=== PATIENT | female | born 1985 | race Caucasian/White ===

== ENCOUNTER 2018-04-20 14:46 | Emergency (ER) | payer OTHER ==
[~2018-04-20] VITALS: Ht 167.6 cm; Wt 59.0 kg
[~2018-04-20 14:46] MED LIST: DIAZ2TAB3 PO; GABA300C PO; HYDR-3240 PO
[2018-04-20] MEDS ORDERED: ONDANSETRON ODT 4 MG ONE (15:07)
[2018-04-20] MEDS ORDERED: HYDROmorphone 2 MG/ML, 1ML ONE (15:08)
[2018-04-20] MEDS ORDERED: HYDROmorphone 1 MG/ML, 1ML IM ONE (15:30)
[2018-04-20] MEDS ORDERED: ONDANSETRON ODT 4 MG PO ONE (15:30)
[2018-04-20 15:35] LABS: MEAN CORPUSCULAR HEMOGLOBIN 28.6 pg (27.0-34.8); MEAN CORPUSCULAR VOLUME 84.1 fL (80-100); PLATELET COUNT 413 x10^3/uL (130-400); RED BLOOD COUNT 6.35 x10^6/uL (3.82-5.3); RED CELL DISTRIBUTION WIDTH 14.2 % (9.6-15.2)
[2018-04-20 15:36] LABS: BASOPHILS # (AUTO) 0.22 x10^3/uL (0-0.1); BASOPHILS % (AUTO) 1 % (0-1); EOSINOPHILS # (AUTO) 0.09 x10^3/uL (0-0.4); EOSINOPHILS % (AUTO) 0 % (1-7); LYMPHOCYTES # (AUTO) 4.22 x10^3/uL (1-3.4); LYMPHOCYTES % (AUTO) 24 % (22-44); MD NO; MONOCYTES % (AUTO) 6 % (2-9); NEUTROPHILS # (AUTO) 12.36 x10^3/uL (1.8-6.8); NEUTROPHILS % (AUTO) 69 % (42-75)
[2018-04-20 15:47] LABS: ALBUMIN 4.1 g/dL (3.4-5.0); ANION GAP 10 mmol/L (5-15); CALCIUM 9.1 mg/dL (8.5-10.1); CHLORIDE 106 mmol/L (98-107)
[2018-04-20] MEDS ORDERED: CEFTRIAXONE PMX 1GM/50ML 50 ML IV ONE (16:30)
[2018-04-20] MEDS ORDERED: LIDOCAINE-MPF 1%, 5ML ONE (16:41)
[2018-04-20] MEDS ORDERED: CEFTRIAXONE 1,000 MG ONE (16:41)
[2018-04-20 16:48] LABS: MICROSCOPIC INDICATED
[2018-04-20 16:49] LABS: CULTURE INDICATED? YES
[2018-04-20] MEDS ORDERED: CEFTRIAXONE 1,000 MG IM ONE (17:00)
[2018-04-20 17:02] VITALS: BP 120/96
== END 2018-04-20 17:06 | disposition home or self-care (01) ==
LOC: ED 15:19
DX: O20.0 Threatened abortion (principal); R10.32 Left lower quadrant pain; R19.7 Diarrhea, unspecified; Z3A.01 Less than 8 weeks gestation of pregnancy
CPT/HCPCS: 36415; 76801; 80048; 81001; 82040; 84702; 85025; 86850; 86900; 87086; 96372; 99284; J0696; J1170; Q0162

== ENCOUNTER 2018-09-28 04:13 | Inpatient (IN) | payer MEDICAID, OTHER ==
[~2018-09-28] VITALS: Ht 162.6 cm; Wt 74.3 kg
--- NOTE | 2018-09-28 04:43 | NUR ---
Pt presents to ed 31 weeks w/ sudden onset fever and chills this am. Admits to meth use approximately 8 hours prior. L&d nurses notified when pt en route and heart tones observed upon admit to ed. Monitoring applied. Pt mildly tachycardic. Pa aware. Pa at bedside for assessment.
[2018-09-28] MEDS ORDERED: ACETAMINOPHEN 500 MG TABLET ONE (04:45)
[2018-09-28] MEDS ORDERED: SODIUM CHLORIDE 0.9% 1,000ML IVBOLUS ONE ×3 (05:00→09:00)
[2018-09-28] MEDS ORDERED: ACETAMINOPHEN 500 MG TABLET PO ONE (05:00)
--- NOTE | 2018-09-28 05:03 | NUR ---
Aware of need for ua. States unable to at this time.
[2018-09-28 05:22] LABS: MEAN CORPUSCULAR HGB CONC 34.6 g/dL (32.4-35.8); MEAN CORPUSCULAR VOLUME 89.5 fL (80-100); MEAN PLATELET VOLUME 6.7 fL (7.4-10.4); PLATELET COUNT 247 x10^3/uL (130-400); RED BLOOD COUNT 3.62 x10^6/uL (3.82-5.3)
[2018-09-28 05:29] LABS: ALBUMIN 2.1 g/dL (3.4-5.0); ANION GAP 8 mmol/L (5-15); CHLORIDE 110 mmol/L (98-107); CREATININE 0.45 mg/dL (0.55-1.02)
--- NOTE | 2018-09-28 05:44 | NUR ---
Sleep comfortably on gurney. Rr even and unlabored. Nadn. States still unable to provide ua.
[2018-09-28 05:55] LABS: MD YES
[2018-09-28 05:56] LABS: <PLATELET ESTIMATE> ADEQUATE; <PLT MORPHOLOGY> NORMAL PLT MORPH; <RBC MORPHOLOGY> NORMAL; BAND#(MANUAL) 1.27 x10^3/uL; BANDS%(MANUAL) 9 % (0-7); LYMPH#(MANUAL) 0.71 x10^3/uL (1-3.4); LYMPHS% (MANUAL) 5 % (22-44); MONOS#(MANUAL) 0.14 x10^3/uL (0.3-2.7); MONOS% (MANUAL) 1 % (2-9); SEG#(MANUAL) 11.99 x10^3/uL (1.8-6.8); SEGS% (MANUAL) 85 % (42-75)
--- NOTE | 2018-09-28 06:34 | NUR ---
This rn talked to pa and pa agrees 2nd L bolus to be given. 2nd L hung at this time.
[2018-09-28] MEDS ORDERED: POTASSIUM CHLORIDE 10% 40 MEQ/30 ML UDC ONE (06:39)
[2018-09-28 06:44] LABS: RAPID INFLUENZA A Negative (Negative); RAPID INFLUENZA B Negative (Negative)
--- NOTE | 2018-09-28 06:53 | NUR ---
Recieved bedside report from ELGIN Granados. All questions answered. Assuming care of pt. Pt resting on gurney with PIV fluids infusing per EMAR. Pt remains connected to child monitor, NIBP, and continous pulse ox. NADN. Both bedrails up for safety measures. No needs expressed at this time. Call light within reach.
[2018-09-28] MEDS ORDERED: POTASSIUM CHLORIDE 10% 40 MEQ/30 ML UDC PO ONE (07:00)
--- NOTE | 2018-09-28 07:49 | NUR ---
Assisted pt on to bed jimenes. Collected urine and sent for UA to lab. Pt moanig stating, "it hurts all over. I think I am in withdrawals." ED PA aware. Both bedrails up for safety measures. Call light within reach. No needs expressed at this time. ELLEN.
[2018-09-28 08:20] LABS: MICROSCOPIC INDICATED
[2018-09-28] MEDS ORDERED: CEFTRIAXONE PMX 1GM/50ML 50 ML IVPB ONE (08:30)
[2018-09-28] MEDS ORDERED: CEFTRIAXONE PMX 1GM/50ML 50 ML ONE (08:36)
[2018-09-28 08:49] LABS: CULTURE INDICATED? YES
--- NOTE | 2018-09-28 08:54 | NUR ---
Provided PIV fluids and medications per EMAR. Pt resting with eyes closed on gurney on right lateral side in position. Both bed rails up for safety measures. Call light within reach. NADN. ED MD and ED PA aware of pt vital signs. PIV fluids infusing per EMAR and orders. No needs expressed at this time. Pt has unlabored respirations with even chest rise and fall.
[2018-09-28 09:21] LABS: AMPHETAMINE SCREEN, URINE Positive (Negative); BARBITURATE SCREEN, URINE Negative (Negative); BENZODIAZEPINE SCREEN, URINE Negative (Negative); CANNABINOID SCREEN, URINE Negative (Negative); COCAINE SCREEN, URINE Negative (Negative); METHADONE SCREEN, URINE Negative (Negative); OPIATE SCREEN, URINE Positive (Negative)
[2018-09-28] MEDS ORDERED: SODIUM CHLORIDE FLUSH 10ML SYR IVF PRN (09:30)
[2018-09-28] MEDS ORDERED: SODIUM CHLORIDE 0.9% 1,000 ML IV SCH (09:43)
[2018-09-28] MEDS ORDERED: LABETALOL 5 MG/ML SYRINGE IV PRN (10:00)
[2018-09-28] MEDS ORDERED: ONDANSETRON 2MG/ML, 2ML IVPush PRN (10:00)
[2018-09-28] MEDS ORDERED: CEFTRIAXONE PMX 2GM/50ML 50 ML IV SCH (10:00)
[2018-09-28] MEDS ORDERED: ONDANSETRON ODT 4 MG PO PRN (10:00)
[2018-09-28 10:15] LABS: FREE T4 (FREE THYROXINE) 1.19 ng/dL (0.76-1.46)
--- NOTE | 2018-09-28 10:18 | NUR ---
Provided report to ELGIN Miller. All questios answered. Pt ready to transfer to floor from ED when ELGIN Miller calls back to report to ED that room on floor is ready.
--- NOTE | 2018-09-28 10:34 | NUR ---
Pt expressing to ED RN, "Can I just leave? Can I take antibiotics at home. They are not going to treat me for withdrawal." Called Admitting MD. Admitting MD aware. Admitting MD to call back with medicaiton orders after consultation with pharmacy.
--- NOTE | 2018-09-28 10:36 | NUR ---
Breakfast tray provided for pt. Pt appreciative.
--- NOTE | 2018-09-28 11:09 | NUR ---
Admitting doctor called and notified ED RN that pharmacy consulted, no medications for withdrawal available for pt at this time related to .
--- NOTE | 2018-09-28 11:39 | NUR ---
Pt transfered to floor from ED and left with all personal belongings.
[2018-09-28 11:42] VITALS: BP 98/61
[2018-09-28 11:47] VITALS: BP 98/61
[2018-09-28] MEDS ORDERED: POTASSIUM CHLORIDE 20 MEQ TAB.ER.PRT PO ONE ×3 (12:00→14:00)
[2018-09-28] MEDS ORDERED: MAGNESIUM SULFATE 2 GM in SODIUM CHLORIDE 0.9% 50 ML IV ONE (12:30)
[2018-09-28] MEDS: POTASSIUM CHLORIDE 40 MEQ in SODIUM CHLORIDE 0.9% 500 ML IV ONE ×2 (12:57→22:42)
[2018-09-28] MEDS ORDERED: POTASSIUM PHOSPHATE 44 MEQ in SODIUM CHLORIDE 0.9% 500 ML IV ONE (13:00)
[2018-09-28] MEDS ORDERED: OXYcodone 5 MG/5 ML ORAL.SOL UDC PO PRN ×2 (13:00→23:00)
[2018-09-28] MEDS ORDERED: LORazepam INTENSOL 2 MG/ML PO PRN ×2 (13:00→23:00)
[2018-09-28 15:45] VITALS: BP 96/63
[2018-09-28 18:42] VITALS: BP 95/59
[2018-09-29 00:48] VITALS: BP 102/60
[2018-09-29] MEDS: NS + 20MEQ KCL 1,000 ML IV SCH ×2 (04:48→10:54)
[2018-09-29 05:55] LABS: BASOPHILS # (AUTO) 0.01 x10^3/uL (0-0.1); BASOPHILS % (AUTO) 0 % (0-1); EOSINOPHILS # (AUTO) 0.01 x10^3/uL (0-0.4); EOSINOPHILS % (AUTO) 0 % (1-7); LYMPHOCYTES # (AUTO) 0.91 x10^3/uL (1-3.4); LYMPHOCYTES % (AUTO) 8 % (22-44); MD NO; MEAN CORPUSCULAR HEMOGLOBIN 30.8 pg (27.0-34.8); MEAN CORPUSCULAR HGB CONC 33.8 g/dL (32.4-35.8); MONOCYTES % (AUTO) 4 % (2-9); NEUTROPHILS # (AUTO) 10.39 x10^3/uL (1.8-6.8); NEUTROPHILS % (AUTO) 88 % (42-75); PLATELET COUNT 238 x10^3/uL (130-400); RED BLOOD COUNT 3.44 x10^6/uL (3.82-5.3); RED CELL DISTRIBUTION WIDTH 13.5 % (9.6-15.2)
[2018-09-29 06:03] LABS: CHLORIDE 117 mmol/L (98-107)
[2018-09-29 06:39] LABS: ALANINE AMINOTRANSFERASE 39 U/L (12-78); ALBUMIN 1.8 g/dL (3.4-5.0); ALKALINE PHOSPHATASE 95 U/L (45-117); ANION GAP 7 mmol/L (5-15); BILIRUBIN,TOTAL 1.1 mg/dL (0.2-1.0); CALCIUM 7.5 mg/dL (8.5-10.1); CREATININE 0.39 mg/dL (0.55-1.02); THYROID STIMULATING HORMONE 0.063 mIU/L (0.358-3.740); TOTAL PROTEIN 4.8 g/dL (6.4-8.2)
[2018-09-29 08:35] VITALS: BP 96/60
[2018-09-29] MEDS: BUPRENORPHINE/NALOXONE 2-0.5MG SL SCH (08:38)
[2018-09-29] MEDS ORDERED: CEFTRIAXONE PMX 2GM/50ML 50 ML IV SCH (09:00)
[2018-09-29] MEDS ORDERED: DAPTOMYCIN 425 MG in SODIUM CHLORIDE 0.9% 100 ML IVPB SCH (10:00)
[2018-09-29] MEDS: SODIUM CHLORIDE 0.45% 1,000 ML IV SCH ×2 (12:41→20:10)
[2018-09-29 13:52] VITALS: BP 101/64
[2018-09-29] MEDS: CEFTAROLINE 600 MG in SODIUM CHLORIDE 0.9% 100 ML IV SCH (20:09)
[2018-09-29 20:17] VITALS: BP 97/64
[2018-09-30 00:30] VITALS: BP 105/65
[2018-09-30] MEDS: BUPRENORPHINE/NALOXONE 2-0.5MG SL SCH ×2 (08:39→20:35)
[2018-09-30] MEDS: NEUTRA PHOS K 250 MG TABLET PO SCH ×3 (08:39→20:35)
[2018-09-30 08:55] VITALS: BP 101/63
[2018-09-30 09:58] LABS: HCT (SEDRATE) 35.5 % (34.6-47.8)
[2018-09-30] MEDS: CEFTAROLINE 600 MG in SODIUM CHLORIDE 0.9% 100 ML IV SCH (11:42)
[2018-09-30 13:50] VITALS: BP 98/63
[2018-09-30 18:45] VITALS: BP 96/60
[2018-09-30] MEDS: SODIUM CHLORIDE 0.45% 1,000 ML IV SCH (20:37)
[2018-10-01] MEDS: CEFTAROLINE 600 MG in SODIUM CHLORIDE 0.9% 100 ML IV SCH ×2 (00:22→12:39)
[2018-10-01] MEDS: BUPRENORPHINE/NALOXONE 2-0.5MG SL SCH ×2 (09:40→20:39)
[2018-10-01 09:41] VITALS: BP 104/57
[2018-10-01 10:05] LABS: BASOPHILS # (AUTO) 0.03 x10^3/uL (0-0.1); BASOPHILS % (AUTO) 0 % (0-1); EOSINOPHILS % (AUTO) 1 % (1-7); LYMPHOCYTES # (AUTO) 2.36 x10^3/uL (1-3.4); LYMPHOCYTES % (AUTO) 26 % (22-44); MD NO; MEAN CORPUSCULAR HGB CONC 34.5 g/dL (32.4-35.8); MEAN CORPUSCULAR VOLUME 89.9 fL (80-100); MEAN PLATELET VOLUME 7.1 fL (7.4-10.4); MONOCYTES # (AUTO) 0.62 x10^3/uL (0.2-0.8); MONOCYTES % (AUTO) 7 % (2-9); NEUTROPHILS # (AUTO) 5.88 x10^3/uL (1.8-6.8); NEUTROPHILS % (AUTO) 65 % (42-75); PLATELET COUNT 247 x10^3/uL (130-400); RED BLOOD COUNT 3.62 x10^6/uL (3.82-5.3); RED CELL DISTRIBUTION WIDTH 13.6 % (9.6-15.2)
[2018-10-01 10:15] LABS: ALANINE AMINOTRANSFERASE 28 U/L (12-78); ALBUMIN 1.8 g/dL (3.4-5.0); ANION GAP 6 mmol/L (5-15); CALCIUM 6.7 mg/dL (8.5-10.1); CHLORIDE 112 mmol/L (98-107); CREATININE 0.45 mg/dL (0.55-1.02)
[2018-10-01 10:18] LABS: ALKALINE PHOSPHATASE 102 U/L (45-117); BILIRUBIN,TOTAL 0.6 mg/dL (0.2-1.0); TOTAL PROTEIN 4.7 g/dL (6.4-8.2)
[2018-10-01] MEDS: SODIUM CHLORIDE 0.45% 1,000 ML IV SCH (12:42)
[2018-10-01 12:44] VITALS: BP 93/53
[2018-10-01 18:56] VITALS: BP 100/60
[2018-10-02] MEDS: CEFTAROLINE 600 MG in SODIUM CHLORIDE 0.9% 100 ML IV SCH ×2 (00:09→12:44)
[2018-10-02 00:12] VITALS: BP 112/77
[2018-10-02] MEDS: SODIUM CHLORIDE 0.45% 1,000 ML IV SCH (04:06)
[2018-10-02 07:45] VITALS: BP 100/64
[2018-10-02] MEDS: BUPRENORPHINE/NALOXONE 2-0.5MG SL SCH ×2 (08:26→21:00)
[2018-10-02 09:55] LABS: MEAN CORPUSCULAR HEMOGLOBIN 30.9 pg (27.0-34.8); MEAN CORPUSCULAR HGB CONC 33.4 g/dL (32.4-35.8); MEAN CORPUSCULAR VOLUME 92.3 fL (80-100); MEAN PLATELET VOLUME 7.3 fL (7.4-10.4); PLATELET COUNT 281 x10^3/uL (130-400); RED BLOOD COUNT 3.65 x10^6/uL (3.82-5.3); RED CELL DISTRIBUTION WIDTH 13.6 % (9.6-15.2)
[2018-10-02 10:08] LABS: ALBUMIN 1.8 g/dL (3.4-5.0); ANION GAP 7 mmol/L (5-15); CALCIUM 7.2 mg/dL (8.5-10.1); CHLORIDE 111 mmol/L (98-107)
[2018-10-02 10:11] LABS: ALANINE AMINOTRANSFERASE 27 U/L (12-78); ALKALINE PHOSPHATASE 98 U/L (45-117); BILIRUBIN,TOTAL 0.5 mg/dL (0.2-1.0); CREATININE 0.34 mg/dL (0.55-1.02); TOTAL PROTEIN 4.9 g/dL (6.4-8.2)
[2018-10-02 10:26] LABS: MD YES
[2018-10-02 10:31] LABS: <PLATELET ESTIMATE> ADEQUATE; <PLT MORPHOLOGY> NORMAL PLT MORPH; <RBC MORPHOLOGY> NORMAL; BANDS%(MANUAL) 1 % (0-7); EOS% (MANUAL) 2 % (1-7); LYMPHS% (MANUAL) 26 % (22-44); METAMYELOCYTES% (MANUAL) 1 % (0-1); MONOS% (MANUAL) 7 % (2-9); SEGS% (MANUAL) 63 % (42-75)
[2018-10-02 13:00] VITALS: BP 100/65
[2018-10-02 20:20] VITALS: BP 102/61
[2018-10-03] MEDS: CEFTAROLINE 600 MG in SODIUM CHLORIDE 0.9% 100 ML IV SCH ×2 (01:14→11:36)
[2018-10-03 01:15] VITALS: BP 101/57
[2018-10-03 05:46] LABS: BASOPHILS # (AUTO) 0.06 x10^3/uL (0-0.1); BASOPHILS % (AUTO) 1 % (0-1); EOSINOPHILS # (AUTO) 0.17 x10^3/uL (0-0.4); EOSINOPHILS % (AUTO) 1 % (1-7); LYMPHOCYTES # (AUTO) 3.41 x10^3/uL (1-3.4); LYMPHOCYTES % (AUTO) 29 % (22-44); MD NO; MEAN CORPUSCULAR HEMOGLOBIN 30.8 pg (27.0-34.8); MEAN CORPUSCULAR HGB CONC 33.4 g/dL (32.4-35.8); MEAN CORPUSCULAR VOLUME 92.3 fL (80-100); MONOCYTES # (AUTO) 0.83 x10^3/uL (0.2-0.8); MONOCYTES % (AUTO) 7 % (2-9); NEUTROPHILS # (AUTO) 7.17 x10^3/uL (1.8-6.8); NEUTROPHILS % (AUTO) 62 % (42-75); PLATELET COUNT 269 x10^3/uL (130-400); RED BLOOD COUNT 3.66 x10^6/uL (3.82-5.3); RED CELL DISTRIBUTION WIDTH 13.5 % (9.6-15.2)
[2018-10-03 05:57] LABS: ALBUMIN 1.9 g/dL (3.4-5.0); ANION GAP 7 mmol/L (5-15); CALCIUM 7.5 mg/dL (8.5-10.1); CHLORIDE 112 mmol/L (98-107)
[2018-10-03 06:01] LABS: ALANINE AMINOTRANSFERASE 23 U/L (12-78); ALKALINE PHOSPHATASE 99 U/L (45-117); BILIRUBIN,TOTAL 0.6 mg/dL (0.2-1.0); CREATININE 0.43 mg/dL (0.55-1.02)
[2018-10-03 08:47] VITALS: BP 95/53
[2018-10-03] MEDS: BUPRENORPHINE/NALOXONE 2-0.5MG SL SCH ×2 (09:01→20:39)
[2018-10-03] MEDS ORDERED: FLUCONAZOLE 50 MG TABLET PO ONE (11:00)
[2018-10-03 12:14] VITALS: BP 93/55
[2018-10-03 19:27] VITALS: BP 93/52
[2018-10-04] VITALS (7 sets, daily range): BP systolic 83–105; BP diastolic 40–65
[2018-10-04] MEDS: CEFTAROLINE 600 MG in SODIUM CHLORIDE 0.9% 100 ML IV SCH (00:44)
[2018-10-04 04:45] LABS: HCT (SEDRATE) 35.1 % (34.6-47.8)
[2018-10-04 04:46] LABS: BASOPHILS # (AUTO) 0.04 x10^3/uL (0-0.1); BASOPHILS % (AUTO) 0 % (0-1); EOSINOPHILS # (AUTO) 0.27 x10^3/uL (0-0.4); EOSINOPHILS % (AUTO) 2 % (1-7); LYMPHOCYTES # (AUTO) 3.24 x10^3/uL (1-3.4); LYMPHOCYTES % (AUTO) 25 % (22-44); MD NO; MEAN CORPUSCULAR HEMOGLOBIN 29.7 pg (27.0-34.8); MEAN CORPUSCULAR HGB CONC 31.7 g/dL (32.4-35.8); MEAN CORPUSCULAR VOLUME 93.7 fL (80-100); MEAN PLATELET VOLUME 7.1 fL (7.4-10.4); MONOCYTES # (AUTO) 0.89 x10^3/uL (0.2-0.8); MONOCYTES % (AUTO) 7 % (2-9); NEUTROPHILS # (AUTO) 8.45 x10^3/uL (1.8-6.8); NEUTROPHILS % (AUTO) 66 % (42-75); PLATELET COUNT 294 x10^3/uL (130-400); RED BLOOD COUNT 3.79 x10^6/uL (3.82-5.3); RED CELL DISTRIBUTION WIDTH 13.2 % (9.6-15.2)
[2018-10-04 04:57] LABS: ALBUMIN 1.9 g/dL (3.4-5.0); ANION GAP 8 mmol/L (5-15); CALCIUM 7.9 mg/dL (8.5-10.1); CHLORIDE 108 mmol/L (98-107)
[2018-10-04 05:00] LABS: ALANINE AMINOTRANSFERASE 24 U/L (12-78); ALKALINE PHOSPHATASE 94 U/L (45-117); BILIRUBIN,TOTAL 0.6 mg/dL (0.2-1.0); C-REACTIVE PROTEIN, QUANT 0.19 mg/dL (0.02-0.49); CREATININE 0.35 mg/dL (0.55-1.02); TOTAL PROTEIN 5.2 g/dL (6.4-8.2)
[2018-10-04] MEDS ORDERED: SODIUM CHLORIDE 0.9%, 500ML IVBOLUS ONE (05:00)
[2018-10-04 05:37] LABS: AMPHETAMINE SCREEN, URINE Negative (Negative); BARBITURATE SCREEN, URINE Negative (Negative); BENZODIAZEPINE SCREEN, URINE Negative (Negative); CANNABINOID SCREEN, URINE Negative (Negative); COCAINE SCREEN, URINE Negative (Negative); METHADONE SCREEN, URINE Negative (Negative); OPIATE SCREEN, URINE Negative (Negative)
[2018-10-04] MEDS: BUPRENORPHINE/NALOXONE 2-0.5MG SL SCH ×2 (09:24→20:52)
[2018-10-04] MEDS: DAPTOMYCIN 425 MG in SODIUM CHLORIDE 0.9% 100 ML IVPB SCH (12:02)
[2018-10-05 02:04] VITALS: BP 85/44
[2018-10-05 02:18] VITALS: BP 106/54
[2018-10-05 05:09] LABS: ANION GAP 8 mmol/L (5-15); CALCIUM 7.9 mg/dL (8.5-10.1); CHLORIDE 106 mmol/L (98-107)
[2018-10-05 05:14] LABS: ALANINE AMINOTRANSFERASE 22 U/L (12-78); ALKALINE PHOSPHATASE 98 U/L (45-117); BILIRUBIN,TOTAL 0.5 mg/dL (0.2-1.0); CREATININE 0.48 mg/dL (0.55-1.02); TOTAL PROTEIN 5.6 g/dL (6.4-8.2)
[2018-10-05 08:38] VITALS: BP 98/59
[2018-10-05] MEDS: BUPRENORPHINE/NALOXONE 2-0.5MG SL SCH ×2 (09:00→20:45)
[2018-10-05] MEDS: DAPTOMYCIN 425 MG in SODIUM CHLORIDE 0.9% 100 ML IVPB SCH (12:15)
[2018-10-05 16:48] VITALS: BP 98/58
[2018-10-05 21:09] VITALS: BP 110/64
[2018-10-06 01:29] VITALS: BP 100/60
[2018-10-06 07:15] VITALS: BP 99/60
[2018-10-06] MEDS: BUPRENORPHINE/NALOXONE 2-0.5MG SL SCH ×2 (09:09→20:20)
[2018-10-06] MEDS: DAPTOMYCIN 425 MG in SODIUM CHLORIDE 0.9% 100 ML IVPB SCH (12:26)
[2018-10-06 14:00] VITALS: BP 97/56
[2018-10-06 20:19] VITALS: BP 102/59
[2018-10-07 02:42] VITALS: BP 91/47
[2018-10-07 08:22] VITALS: BP 90/51
[2018-10-07] MEDS: BUPRENORPHINE/NALOXONE 2-0.5MG SL SCH ×2 (09:00→20:20)
[2018-10-07] MEDS: DAPTOMYCIN 425 MG in SODIUM CHLORIDE 0.9% 100 ML IVPB SCH (13:15)
[2018-10-07] MEDS: MICONAZOLE 7 VAG. CRM 2%, 45GM VG SCH ×2 (14:30→20:19)
[2018-10-07 15:22] VITALS: BP 97/56
[2018-10-07 21:03] VITALS: BP 120/78
[2018-10-08 03:53] VITALS: BP 90/50
[2018-10-08 08:00] VITALS: BP 92/50
[2018-10-08] MEDS: BUPRENORPHINE/NALOXONE 2-0.5MG SL SCH ×2 (08:55→20:28)
[2018-10-08] MEDS: DAPTOMYCIN 425 MG in SODIUM CHLORIDE 0.9% 100 ML IVPB SCH (12:36)
[2018-10-08] MEDS: ENOXAPARIN 40 MG/0.4 ML SQ SCH (12:36)
[2018-10-08 13:31] VITALS: BP 111/65
[2018-10-08 19:24] VITALS: BP 123/67
[2018-10-08] MEDS: MICONAZOLE 7 VAG. CRM 2%, 45GM VG SCH (20:28)
[2018-10-09 03:45] VITALS: BP 92/51
[2018-10-09 04:05] VITALS: BP 92/51
[2018-10-09 05:13] LABS: BASOPHILS # (AUTO) 0.23 x10^3/uL (0-0.1); BASOPHILS % (AUTO) 2 % (0-1); EOSINOPHILS # (AUTO) 0.23 x10^3/uL (0-0.4); EOSINOPHILS % (AUTO) 2 % (1-7); LYMPHOCYTES # (AUTO) 2.94 x10^3/uL (1-3.4); LYMPHOCYTES % (AUTO) 19 % (22-44); MD NO; MEAN CORPUSCULAR HEMOGLOBIN 30.7 pg (27.0-34.8); MEAN CORPUSCULAR HGB CONC 33.4 g/dL (32.4-35.8); MEAN CORPUSCULAR VOLUME 92.1 fL (80-100); MEAN PLATELET VOLUME 7.3 fL (7.4-10.4); MONOCYTES # (AUTO) 1.15 x10^3/uL (0.2-0.8); MONOCYTES % (AUTO) 8 % (2-9); NEUTROPHILS # (AUTO) 10.58 x10^3/uL (1.8-6.8); NEUTROPHILS % (AUTO) 70 % (42-75); PLATELET COUNT 310 x10^3/uL (130-400); RED BLOOD COUNT 3.69 x10^6/uL (3.82-5.3)
[2018-10-09 05:22] LABS: ALANINE AMINOTRANSFERASE 17 U/L (12-78); ALBUMIN 2.2 g/dL (3.4-5.0); ANION GAP 7 mmol/L (5-15); CALCIUM 7.9 mg/dL (8.5-10.1); CHLORIDE 107 mmol/L (98-107); CREATININE 0.46 mg/dL (0.55-1.02)
[2018-10-09 05:32] LABS: ALKALINE PHOSPHATASE 104 U/L (45-117); BILIRUBIN,TOTAL 0.6 mg/dL (0.2-1.0); TOTAL PROTEIN 5.8 g/dL (6.4-8.2)
[2018-10-09 06:37] VITALS: BP 92/46
[2018-10-09] MEDS: BUPRENORPHINE/NALOXONE 2-0.5MG SL SCH ×2 (08:27→20:57)
[2018-10-09] MEDS: DAPTOMYCIN 425 MG in SODIUM CHLORIDE 0.9% 100 ML IVPB SCH (12:10)
[2018-10-09] MEDS: ENOXAPARIN 40 MG/0.4 ML SQ SCH (12:11)
[2018-10-09 14:55] VITALS: BP 99/60
[2018-10-09 20:22] VITALS: BP 107/62
[2018-10-09] MEDS: MICONAZOLE 7 VAG. CRM 2%, 45GM VG SCH (20:57)
[2018-10-10 02:00] VITALS: BP 106/54
[2018-10-10 07:59] VITALS: BP 99/54
[2018-10-10] MEDS: BUPRENORPHINE/NALOXONE 2-0.5MG SL SCH ×2 (09:00→20:27)
[2018-10-10 10:02] LABS: BASOPHILS # (AUTO) 0.03 x10^3/uL (0-0.1); BASOPHILS % (AUTO) 0 % (0-1); EOSINOPHILS # (AUTO) 0.21 x10^3/uL (0-0.4); EOSINOPHILS % (AUTO) 2 % (1-7); LYMPHOCYTES # (AUTO) 2.63 x10^3/uL (1-3.4); LYMPHOCYTES % (AUTO) 20 % (22-44); MD NO; MEAN CORPUSCULAR HEMOGLOBIN 30.1 pg (27.0-34.8); MEAN CORPUSCULAR HGB CONC 32.4 g/dL (32.4-35.8); MEAN PLATELET VOLUME 7.2 fL (7.4-10.4); MONOCYTES # (AUTO) 1.04 x10^3/uL (0.2-0.8); MONOCYTES % (AUTO) 8 % (2-9); NEUTROPHILS # (AUTO) 9.35 x10^3/uL (1.8-6.8); NEUTROPHILS % (AUTO) 71 % (42-75); PLATELET COUNT 293 x10^3/uL (130-400); RED BLOOD COUNT 3.69 x10^6/uL (3.82-5.3)
[2018-10-10] MEDS: DAPTOMYCIN 425 MG in SODIUM CHLORIDE 0.9% 100 ML IVPB SCH (12:27)
[2018-10-10] MEDS: ENOXAPARIN 40 MG/0.4 ML SQ SCH (12:27)
[2018-10-10 14:00] VITALS: BP 95/53
[2018-10-10 18:32] LABS: MICROSCOPIC INDICATED
[2018-10-10 20:25] VITALS: BP 102/61
[2018-10-10] MEDS: MICONAZOLE 7 VAG. CRM 2%, 45GM VG SCH (20:27)
[2018-10-11 03:50] VITALS: BP 95/51
[2018-10-11 05:16] LABS: CHLORIDE 108 mmol/L (98-107)
[2018-10-11 05:21] LABS: ALANINE AMINOTRANSFERASE 15 U/L (12-78); ALBUMIN 2.2 g/dL (3.4-5.0); ALKALINE PHOSPHATASE 101 U/L (45-117); ANION GAP 7 mmol/L (5-15); BASOPHILS # (AUTO) 0.07 x10^3/uL (0-0.1); BASOPHILS % (AUTO) 1 % (0-1); BILIRUBIN,TOTAL 0.6 mg/dL (0.2-1.0); C-REACTIVE PROTEIN, QUANT 0.37 mg/dL (0.02-0.49); CALCIUM 7.9 mg/dL (8.5-10.1); CREATINE KINASE, TOTAL 23 U/L (26-192); CREATININE 0.43 mg/dL (0.55-1.02); EOSINOPHILS # (AUTO) 0.22 x10^3/uL (0-0.4); EOSINOPHILS % (AUTO) 2 % (1-7); LYMPHOCYTES # (AUTO) 2.92 x10^3/uL (1-3.4); LYMPHOCYTES % (AUTO) 23 % (22-44); MD NO; MEAN CORPUSCULAR HEMOGLOBIN 30.3 pg (27.0-34.8); MEAN CORPUSCULAR VOLUME 91.8 fL (80-100); MEAN PLATELET VOLUME 7.3 fL (7.4-10.4); MONOCYTES # (AUTO) 1.06 x10^3/uL (0.2-0.8); MONOCYTES % (AUTO) 8 % (2-9); NEUTROPHILS # (AUTO) 8.72 x10^3/uL (1.8-6.8); NEUTROPHILS % (AUTO) 67 % (42-75); PLATELET COUNT 293 x10^3/uL (130-400); RED BLOOD COUNT 3.69 x10^6/uL (3.82-5.3); RED CELL DISTRIBUTION WIDTH 13.1 % (9.6-15.2); TOTAL PROTEIN 5.7 g/dL (6.4-8.2)
[2018-10-11 06:33] LABS: HCT (SEDRATE) 33.9 % (34.6-47.8)
[2018-10-11 08:30] VITALS: BP 89/53
[2018-10-11] MEDS: BUPRENORPHINE/NALOXONE 2-0.5MG SL SCH ×2 (08:46→20:29)
[2018-10-11] MEDS: ENOXAPARIN 40 MG/0.4 ML SQ SCH (12:10)
[2018-10-11] MEDS: DAPTOMYCIN 425 MG in SODIUM CHLORIDE 0.9% 100 ML IVPB SCH (12:10)
[2018-10-11 14:21] VITALS: BP 116/67
[2018-10-11 18:51] VITALS: BP 111/67
[2018-10-11] MEDS: MICONAZOLE 7 VAG. CRM 2%, 45GM VG SCH (20:30)
[2018-10-12 00:12] VITALS: BP 99/58
[2018-10-12 08:42] VITALS: BP 108/65
[2018-10-12] MEDS: BUPRENORPHINE/NALOXONE 2-0.5MG SL SCH ×2 (09:24→19:58)
[2018-10-12] MEDS: ENOXAPARIN 40 MG/0.4 ML SQ SCH (12:17)
[2018-10-12] MEDS: DAPTOMYCIN 425 MG in SODIUM CHLORIDE 0.9% 100 ML IVPB SCH (12:20)
[2018-10-12 14:00] VITALS: BP 105/61
[2018-10-12] MEDS: MICONAZOLE 7 VAG. CRM 2%, 45GM VG SCH (20:10)
[2018-10-12 20:18] VITALS: BP 111/62
[2018-10-13 03:32] LABS: BASOPHILS % (AUTO) 2 % (0-1); EOSINOPHILS # (AUTO) 0.24 x10^3/uL (0-0.4); EOSINOPHILS % (AUTO) 2 % (1-7); LYMPHOCYTES % (AUTO) 26 % (22-44); MD NO; MEAN CORPUSCULAR HEMOGLOBIN 30.7 pg (27.0-34.8); MEAN CORPUSCULAR HGB CONC 33.3 g/dL (32.4-35.8); MEAN CORPUSCULAR VOLUME 92.2 fL (80-100); MEAN PLATELET VOLUME 7.2 fL (7.4-10.4); MONOCYTES # (AUTO) 0.87 x10^3/uL (0.2-0.8); MONOCYTES % (AUTO) 9 % (2-9); NEUTROPHILS # (AUTO) 6.27 x10^3/uL (1.8-6.8); NEUTROPHILS % (AUTO) 61 % (42-75); PLATELET COUNT 299 x10^3/uL (130-400); RED BLOOD COUNT 3.73 x10^6/uL (3.82-5.3); RED CELL DISTRIBUTION WIDTH 13.1 % (9.6-15.2)
[2018-10-13 03:38] LABS: ALANINE AMINOTRANSFERASE 13 U/L (12-78); ALBUMIN 2.2 g/dL (3.4-5.0); ANION GAP 7 mmol/L (5-15); CALCIUM 7.9 mg/dL (8.5-10.1); CHLORIDE 109 mmol/L (98-107)
[2018-10-13 03:41] LABS: ALKALINE PHOSPHATASE 97 U/L (45-117); BILIRUBIN,TOTAL 0.6 mg/dL (0.2-1.0); CREATININE 0.52 mg/dL (0.55-1.02); TOTAL PROTEIN 5.7 g/dL (6.4-8.2)
[2018-10-13 04:00] VITALS: BP 110/68
[2018-10-13] MEDS: BUPRENORPHINE/NALOXONE 2-0.5MG SL SCH ×2 (08:06→20:25)
[2018-10-13] MEDS: DAPTOMYCIN 425 MG in SODIUM CHLORIDE 0.9% 100 ML IVPB SCH (12:24)
[2018-10-13] MEDS: ENOXAPARIN 40 MG/0.4 ML SQ SCH (12:27)
[2018-10-13 12:30] VITALS: BP 117/72
[2018-10-13 18:36] VITALS: BP 92/53
[2018-10-14 00:13] VITALS: BP 107/66
[2018-10-14 08:00] VITALS: BP_SYST 120; BP_SYST 87; BP_DIAS 52; BP_DIAS 74
[2018-10-14] MEDS: BUPRENORPHINE/NALOXONE 2-0.5MG SL SCH ×2 (09:36→21:00)
[2018-10-14] MEDS: DAPTOMYCIN 425 MG in SODIUM CHLORIDE 0.9% 100 ML IVPB SCH (11:47)
[2018-10-14] MEDS: ENOXAPARIN 40 MG/0.4 ML SQ SCH (11:49)
[2018-10-14 16:00] VITALS: BP 120/66
[2018-10-14 20:10] VITALS: BP_SYST 98
[2018-10-15 02:48] VITALS: BP 80/36
[2018-10-15 03:00] VITALS: BP 96/55
[2018-10-15 08:54] VITALS: BP 89/51
[2018-10-15] MEDS: BUPRENORPHINE/NALOXONE 2-0.5MG SL SCH ×2 (09:45→21:56)
[2018-10-15] MEDS: DAPTOMYCIN 425 MG in SODIUM CHLORIDE 0.9% 100 ML IVPB SCH (12:01)
[2018-10-15] MEDS: ENOXAPARIN 40 MG/0.4 ML SQ SCH (12:06)
[2018-10-15 14:26] VITALS: BP 99/62
[2018-10-15 19:32] VITALS: BP 96/60
[2018-10-16 00:42] VITALS: BP 100/62
[2018-10-16 07:31] VITALS: BP 92/54
[2018-10-16] MEDS: BUPRENORPHINE/NALOXONE 2-0.5MG SL SCH ×2 (10:50→22:26)
[2018-10-16 10:53] VITALS: BP 92/55
[2018-10-16] MEDS: DAPTOMYCIN 425 MG in SODIUM CHLORIDE 0.9% 100 ML IVPB SCH (10:55)
[2018-10-16] MEDS: ENOXAPARIN 40 MG/0.4 ML SQ SCH (12:12)
[2018-10-16 13:52] VITALS: BP 102/63
[2018-10-16 18:58] VITALS: BP 93/55
[2018-10-17 01:38] VITALS: BP 110/68
[2018-10-17 08:48] VITALS: BP 106/64
[2018-10-17] MEDS: BUPRENORPHINE/NALOXONE 2-0.5MG SL SCH ×2 (09:37→20:40)
[2018-10-17] MEDS: ENOXAPARIN 40 MG/0.4 ML SQ SCH (12:30)
[2018-10-17 13:58] VITALS: BP 102/62
[2018-10-17] MEDS: DAPTOMYCIN 425 MG in SODIUM CHLORIDE 0.9% 100 ML IVPB SCH (15:09)
[2018-10-17 19:37] VITALS: BP 97/61
[2018-10-18 01:43] VITALS: BP 93/52
[2018-10-18 06:55] LABS: BASOPHILS # (AUTO) 0.05 x10^3/uL (0-0.1); MD NO; MEAN PLATELET VOLUME 7.5 fL (7.4-10.4)
[2018-10-18 06:57] LABS: HCT (SEDRATE) 34.4 % (34.6-47.8)
[2018-10-18 07:03] LABS: ALBUMIN 2.2 g/dL (3.4-5.0); ANION GAP 5 mmol/L (5-15); CALCIUM 8.2 mg/dL (8.5-10.1); CHLORIDE 110 mmol/L (98-107)
[2018-10-18 07:06] LABS: BASOPHILS % (AUTO) 1 % (0-1); EOSINOPHILS # (AUTO) 0.24 x10^3/uL (0-0.4); EOSINOPHILS % (AUTO) 3 % (1-7); LYMPHOCYTES # (AUTO) 2.93 x10^3/uL (1-3.4); LYMPHOCYTES % (AUTO) 33 % (22-44); MEAN CORPUSCULAR HEMOGLOBIN 29.6 pg (27.0-34.8); MEAN CORPUSCULAR HGB CONC 32.7 g/dL (32.4-35.8); MEAN CORPUSCULAR VOLUME 90.5 fL (80-100); MONOCYTES # (AUTO) 0.69 x10^3/uL (0.2-0.8); MONOCYTES % (AUTO) 8 % (2-9); NEUTROPHILS # (AUTO) 4.95 x10^3/uL (1.8-6.8); NEUTROPHILS % (AUTO) 56 % (42-75); PLATELET COUNT 223 x10^3/uL (130-400); RED BLOOD COUNT 3.71 x10^6/uL (3.82-5.3); RED CELL DISTRIBUTION WIDTH 12.6 % (9.6-15.2)
[2018-10-18 07:10] LABS: ALANINE AMINOTRANSFERASE 13 U/L (12-78); ALKALINE PHOSPHATASE 99 U/L (45-117); BILIRUBIN,TOTAL 1.1 mg/dL (0.2-1.0); C-REACTIVE PROTEIN, QUANT 0.16 mg/dL (0.02-0.49); CREATINE KINASE, TOTAL 32 U/L (26-192); CREATININE 0.46 mg/dL (0.55-1.02); TOTAL PROTEIN 5.7 g/dL (6.4-8.2)
[2018-10-18 07:43] VITALS: BP 100/56
[2018-10-18] MEDS: DAPTOMYCIN 425 MG in SODIUM CHLORIDE 0.9% 100 ML IVPB SCH (11:22)
[2018-10-18] MEDS: BUPRENORPHINE/NALOXONE 2-0.5MG SL SCH ×2 (11:22→20:40)
[2018-10-18] MEDS: ENOXAPARIN 40 MG/0.4 ML SQ SCH (11:23)
[2018-10-18 14:00] VITALS: BP 103/55
[2018-10-18 18:58] VITALS: BP 93/51
[2018-10-19 03:51] VITALS: BP 112/67
[2018-10-19 09:07] VITALS: BP 91/52
[2018-10-19] MEDS: BUPRENORPHINE/NALOXONE 2-0.5MG SL SCH (09:17)
[2018-10-19] MEDS: ENOXAPARIN 40 MG/0.4 ML SQ SCH (11:11)
[2018-10-19] MEDS: DAPTOMYCIN 425 MG in SODIUM CHLORIDE 0.9% 100 ML IVPB SCH (11:42)
[2018-10-19 15:04] VITALS: BP 113/65
== END 2018-10-19 19:45 | disposition left against medical advice (07) | DRG 831 ==
LOC: ED 08:12 → EDIP 09:43 → 4EST 11:29
PROVIDERS: ADMIT Internal Medicine; ATTEND Internal Medicine
PROC: 02HV33Z Insertion of Infusion Device into Superior Vena Cava, Percutaneous Approach (ICD-10-PCS; principal; 2018-10-02)
PROC: B5181ZA Fluoroscopy of Superior Vena Cava using Low Osmolar Contrast, Guidance (ICD-10-PCS; 2018-10-02)
PROC: B548ZZA Ultrasonography of Superior Vena Cava, Guidance (ICD-10-PCS; 2018-10-02)
DX: O98.813 Other maternal infectious and parasitic diseases complicating pregnancy, third trimester (principal); A41.02 Sepsis due to Methicillin resistant Staphylococcus aureus; E43 Unspecified severe protein-calorie malnutrition; R65.20 Severe sepsis without septic shock; E87.2 Acidosis; F11.23 Opioid dependence with withdrawal; I47.2 Ventricular tachycardia; N10 Acute pyelonephritis; O23.03 Infections of kidney in pregnancy, third trimester; O41.03X0 Oligohydramnios, third trimester, not applicable or unspecified; O99.413 Diseases of the circulatory system complicating pregnancy, third trimester; O99.323 Drug use complicating pregnancy, third trimester; B37.3 Candidiasis of vulva and vagina; D64.9 Anemia, unspecified; Z53.21 Procedure and treatment not carried out due to patient leaving prior to being seen by health care provider; E87.6 Hypokalemia; F15.10 Other stimulant abuse, uncomplicated; L01.00 Impetigo, unspecified; O25.13 Malnutrition in pregnancy, third trimester; O99.013 Anemia complicating pregnancy, third trimester; O99.283 Endocrine, nutritional and metabolic diseases complicating pregnancy, third trimester; O26.893 Other specified pregnancy related conditions, third trimester; O99.713 Diseases of the skin and subcutaneous tissue complicating pregnancy, third trimester; Z3A.31 31 weeks gestation of pregnancy; Z87.891 Personal history of nicotine dependence
CPT/HCPCS: 36415; 87400; 87806; 96361; 99285; J0572; 36573; 71045; 76770; 76805; 76815; 76819; 80048; 80053; 80307; 81001; 82040; 82550; 83605; 83735; 84100; 84112; 84132; 84439; 84443; 85025; 85651; 86140; 86592; 86762; 86803; 86850; 86900; 87040; 87077; 87086; 87147; 87186; 87340; 87491; 87521; 87522; 87591; 93005; 93306; 96374; G0378; J0696; J0712; J0878; J1650; J3475; J3480; C1751; G0475; J7030; J7040

== ENCOUNTER 2018-11-18 15:09 | Outpatient (CLI) | payer MEDICAID ==
[~2018-11-18] VITALS: Ht 167.6 cm; Wt 70.0 kg
== END 2018-11-18 19:25 | disposition home or self-care (01) ==
LOC: LDOP 15:09
PROVIDERS: ATTEND Obstetrics & Gynecology
DX: O26.893 Other specified pregnancy related conditions, third trimester (principal); R10.9 Unspecified abdominal pain; Z3A.36 36 weeks gestation of pregnancy
CPT/HCPCS: 59025; 80307; 99211; J7120; G0463

== ENCOUNTER 2018-11-19 17:33 | Outpatient (CLI) | payer MEDICAID | END 2018-11-19 20:44 | disposition home or self-care (01) | LOC: LDOP 17:33 | PROVIDERS: ATTEND Obstetrics & Gynecology | DX: O26.893 Other specified pregnancy related conditions, third trimester (principal); R10.9 Unspecified abdominal pain; Z3A.36 36 weeks gestation of pregnancy | CPT/HCPCS: 59025; 80307; 81001; 99211; G0463 ==

== ENCOUNTER 2018-11-24 19:49 | Inpatient (IN) | payer MEDICAID ==
[~2018-11-24] VITALS: Ht 167.6 cm; Wt 70.9 kg
[2018-11-24 20:19] LABS: MICROSCOPIC INDICATED
[2018-11-24] MEDS ORDERED: OXYTOCIN 30U/ 0.9% NaCL 500ML 500 ML IV ONE (20:22)
[2018-11-24] MEDS ORDERED: FENTANYL/BUPIV./NS/PF 250 ML EPIDCONT SCH ×2 (20:22→21:46)
[2018-11-24] MEDS: D5%-LACTATED RINGERS 1,000 ML IV SCH (20:22)
[2018-11-24 20:29] LABS: AMPHETAMINE SCREEN, URINE Negative (Negative); BARBITURATE SCREEN, URINE Negative (Negative); BENZODIAZEPINE SCREEN, URINE Negative (Negative); CANNABINOID SCREEN, URINE Negative (Negative); COCAINE SCREEN, URINE Negative (Negative); METHADONE SCREEN, URINE Negative (Negative); OPIATE SCREEN, URINE Negative (Negative)
[2018-11-24] MEDS ORDERED: ONDANSETRON 2MG/ML, 2ML IVPush PRN (20:30)
[2018-11-24] MEDS ORDERED: SODIUM CITRATE/CITRIC ACID 15 ML UDC PO PRN (20:30)
[2018-11-24] MEDS ORDERED: METOCLOPRAMIDE 5 MG/ML, 2ML IVPush PRN (20:30)
[2018-11-24] MEDS ORDERED: CALCIUM CARBONATE 500 MG TAB.CHEW PO PRN (20:30)
[2018-11-24] MEDS: LACTATED RINGERS 1,000 ML IV SCH ×4 (20:38→22:39)
[2018-11-24] MEDS ORDERED: MISOPROSTOL 200 MCG TABLET ONE (20:41)
[2018-11-24] MEDS ORDERED: OXYTOCIN 30U/ 0.9% NaCL 500ML 500 ML ONE (20:41)
[2018-11-24] MEDS ORDERED: NEWBORN KIT ONE (20:41)
[2018-11-24] MEDS ORDERED: LIDOCAINE 1%, 20ML ONE (20:41)
[2018-11-24] MEDS ORDERED: FENTANYL PF 500 MCG, BUPIVACAINE/PF 0.5%, 30ML 62.5 ML in SODIUM CHLORIDE 0.9% 177.5 ML EPIDCONT SCH (21:00)
[2018-11-24 21:04] LABS: BASOPHILS # (AUTO) 0.05 x10^3/uL (0-0.1); BASOPHILS % (AUTO) 1 % (0-1); EOSINOPHILS # (AUTO) 0.07 x10^3/uL (0-0.4); EOSINOPHILS % (AUTO) 1 % (1-7); LYMPHOCYTES # (AUTO) 2.66 x10^3/uL (1-3.4); LYMPHOCYTES % (AUTO) 32 % (22-44); MD NO; MEAN CORPUSCULAR HEMOGLOBIN 29.9 pg (27.0-34.8); MEAN CORPUSCULAR HGB CONC 32.5 g/dL (32.4-35.8); MEAN CORPUSCULAR VOLUME 92.2 fL (80-100); MEAN PLATELET VOLUME 7.8 fL (7.4-10.4); MONOCYTES # (AUTO) 0.61 x10^3/uL (0.2-0.8); MONOCYTES % (AUTO) 7 % (2-9); NEUTROPHILS % (AUTO) 59 % (42-75); PLATELET COUNT 210 x10^3/uL (130-400); RED BLOOD COUNT 4.06 x10^6/uL (3.82-5.3); RED CELL DISTRIBUTION WIDTH 13.3 % (9.6-15.2)
[2018-11-24] MEDS ORDERED: BUPIVACAINE 0.25% ONE (21:10)
[2018-11-24] MEDS ORDERED: LIDOCAINE/PF 1.5%-EPI 1:200K, 30ML ONE (21:10)
[2018-11-24] MEDS ORDERED: LACTATED RINGERS 1,000 ML IVBOLUS PRN (22:00)
[2018-11-24] MEDS ORDERED: EPHEDRINE 50 MG/ML, 1ML IVPush PRN (22:00)
[2018-11-24] MEDS ORDERED: NALOXONE 0.4 MG/ML, 1ML IVPush PRN (22:00)
[2018-11-24] MEDS ORDERED: OXYTOCIN 30U/ 0.9% NaCL 500ML 500 ML IV PRN (22:27)
[2018-11-24 22:57] VITALS: BP 109/58
[2018-11-25] MEDS: LACTATED RINGERS 1,000 ML IV SCH (04:53)
[2018-11-25] MEDS: D5%-LACTATED RINGERS 1,000 ML IV SCH (04:53)
[2018-11-25] MEDS: OXYTOCIN 30U/ 0.9% NaCL 500ML 500 ML IV SCH ×5 (08:06→18:06)
[2018-11-25] MEDS ORDERED: IBUPROFEN 600 MG TABLET ONE (08:20)
[2018-11-25] MEDS: IBUPROFEN 600 MG TABLET PO PRN ×2 (08:21→15:56)
[2018-11-25 08:22] VITALS: BP 113/59
[2018-11-25] MEDS ORDERED: DOCUSATE 100 MG CAPSULE PO PRN (08:30)
[2018-11-25] MEDS ORDERED: ONDANSETRON 2MG/ML, 2ML IV PRN (08:30)
[2018-11-25] MEDS ORDERED: MISOPROSTOL 200 MCG TABLET PR PRN (08:30)
[2018-11-25] MEDS ORDERED: ACETAMINOPHEN 325 MG TABLET PO PRN (08:30)
[2018-11-25] MEDS: PRENATAL VIT/IRON/FA 1 EACH TABLET PO SCH (09:00)
[2018-11-25] MEDS ORDERED: OXYTOCIN 30U/ 0.9% NaCL 500ML 500 ML ONE (09:11)
[2018-11-25 09:40] VITALS: BP 106/64
[2018-11-25] MEDS ORDERED: OXYcodone/APAP 5/325MG TABLET PO ONE (10:00)
[2018-11-25 13:56] VITALS: BP 124/74
[2018-11-25 15:50] LABS: MEAN CORPUSCULAR HEMOGLOBIN 29.8 pg (27.0-34.8); MEAN CORPUSCULAR HGB CONC 32.9 g/dL (32.4-35.8); MEAN CORPUSCULAR VOLUME 90.4 fL (80-100); MEAN PLATELET VOLUME 7.5 fL (7.4-10.4); PLATELET COUNT 268 x10^3/uL (130-400); RED BLOOD COUNT 4.49 x10^6/uL (3.82-5.3); RED CELL DISTRIBUTION WIDTH 13.6 % (9.6-15.2)
[2018-11-25 16:11] LABS: BASOPHILS # (AUTO) 0.05 x10^3/uL (0-0.1); BASOPHILS % (AUTO) 0 % (0-1); EOSINOPHILS # (AUTO) 0.02 x10^3/uL (0-0.4); EOSINOPHILS % (AUTO) 0 % (1-7); LYMPHOCYTES # (AUTO) 2.49 x10^3/uL (1-3.4); LYMPHOCYTES % (AUTO) 14 % (22-44); MD SCAN; MONOCYTES % (AUTO) 6 % (2-9); NEUTROPHILS # (AUTO) 14.08 x10^3/uL (1.8-6.8); NEUTROPHILS % (AUTO) 80 % (42-75)
[2018-11-25] MEDS ORDERED: BUPRENORPHINE/NALOXONE 8-2MG SL ONE ×2 (16:30→17:00)
[2018-11-25 17:22] VITALS: BP 106/61
[2018-11-25 21:00] VITALS: BP 107/67
[2018-11-26 01:50] VITALS: BP 99/61
[2018-11-26] MEDS: OXYTOCIN 30U/ 0.9% NaCL 500ML 500 ML IV SCH (04:06)
[2018-11-26 07:49] VITALS: BP 126/86
[2018-11-26] MEDS: PRENATAL VIT/IRON/FA 1 EACH TABLET PO SCH (09:00)
[2018-11-26] MEDS ORDERED: BUPRENORPHINE/NALOXONE 8-2MG SL SCH (09:00)
== END 2018-11-26 08:51 | disposition home or self-care (01) | DRG 806 ==
LOC: LDOP 19:49 → LDIP 20:11 → 2NW 11-25 09:52
PROVIDERS: ADMIT Obstetrics & Gynecology; ATTEND Obstetrics & Gynecology
PROC: 10E0XZZ Delivery of Products of Conception, External Approach (ICD-10-PCS; principal; 2018-11-24)
PROC: 0KQM0ZZ Repair Perineum Muscle, Open Approach (ICD-10-PCS; 2018-11-24)
PROC: 3E0R3BZ Introduction of Anesthetic Agent into Spinal Canal, Percutaneous Approach (ICD-10-PCS; 2018-11-24)
PROC: 00HU33Z Insertion of Infusion Device into Spinal Canal, Percutaneous Approach (ICD-10-PCS; 2018-11-24)
DX: O69.1XX0 Labor and delivery complicated by cord around neck, with compression, not applicable or unspecified (principal); O72.1 Other immediate postpartum hemorrhage; Z37.0 Single live birth; O70.1 Second degree perineal laceration during delivery; Z3A.37 37 weeks gestation of pregnancy
CPT/HCPCS: 36415; J0574; J3490; J7121; S0020; 80307; 81001; 85025; 86850; 86900; 87086; G0378; J3010; J2590; J7050; J7120